=== PATIENT | male | born 1960 | race Caucasian/White ===

== ENCOUNTER 2018-03-08 15:37 | Emergency (ER) | payer OTHER ==
[~2018-03-08] VITALS: Ht 188 cm; Wt 104.3 kg
[2018-03-08] MEDS ORDERED: METFORMIN HCL1000 MG (15:55)
[2018-03-08] MEDS ORDERED: AVAPRO150 MG (15:55)
[2018-03-08] MEDS ORDERED: ECOTRIN325 M1 (15:56)
[2018-03-08] MEDS ORDERED: PLAVIX75 MG (15:56)
[2018-03-08] MEDS ORDERED: LIPITOR20 MG (15:56)
== END 2018-03-08 21:37 | disposition home or self-care (01) ==
LOC: ER 15:37
DX: S00.83XA Contusion of other part of head, initial encounter (principal); M54.2 Cervicalgia; W18.39XA Other fall on same level, initial encounter; Y93.89 Activity, other specified; Y92.89 Other specified places as the place of occurrence of the external cause; Y99.8 Other external cause status

== ENCOUNTER 2022-11-10 15:57 | Emergency (ER) | payer OTHER ==
[~2022-11-10] VITALS: Ht 188 cm; Wt 99.8 kg
[~2022-11-10 15:57] MED LIST: AVAPRO150 MG; ECOTRIN325 M1; LIPITOR20 MG; METFORMIN HCL1000 MG; PLAVIX75 MG
== END 2022-11-10 22:38 | disposition home or self-care (01) ==
LOC: ER 15:57
DX: N45.1 Epididymitis (principal); I86.1 Scrotal varices; E11.9 Type 2 diabetes mellitus without complications; Z79.84 Long term (current) use of oral hypoglycemic drugs; I10 Essential (primary) hypertension; Z91.013 Allergy to seafood